=== PATIENT | female | born 1955 | race Caucasian/White ===

== ENCOUNTER 2018-11-10 06:06 | Day surgery (SDC) | payer MEDICARE ==
[~2018-11-10] VITALS: Ht 157.5 cm; Wt 59.5 kg
[~2018-11-10 06:06] MED LIST: ACET-2247 PO; AMLO-512 PO; HYDR25TA PO
[2018-11-10] MEDS ORDERED: LIDOCAINE 4% 50 ML SOLUTION TP ONE (06:07)
[2018-11-10] MEDS ORDERED: BENZOCAINE 20% 50 MCG/SPRAY 57 GM TP ONE (06:07)
[2018-11-10] MEDS ORDERED: LIDOCAINE 2% 30 ML JELLY TP ONE (06:07)
[2018-11-10] MEDS ORDERED: SODIUM CHLORIDE 0.9% 1,000 ML IV ONE ×2 (06:14→06:30)
[2018-11-10] MEDS ORDERED: MIDAZOLAM HCL 2 MG/2 ML VIAL ONE (07:27)
[2018-11-10] MEDS ORDERED: FentaNYL CITRATE-PF 100 MCG/2 ML VIAL ONE (07:28)
[2018-11-10] MEDS ORDERED: MethylPREDNISolone SOD SUCC 125 MG/2 ML VIAL IVP ONE (08:30)
[2018-11-10] MEDS ORDERED: MethylPREDNISolone SOD SUCC 125 MG/2 ML VIAL ONE (08:35)
[2018-11-10] MEDS ORDERED: OXYGEN THERAPY IH SCH (20:00)
== END 2018-11-10 09:55 | disposition home or self-care (01) ==
LOC: SURGERY 06:06
PROVIDERS: ATTEND Internal Medicine Critical Care Medicine
DX: J38.4 Edema of larynx (principal); B37.0 Candidal stomatitis; J84.111 Idiopathic interstitial pneumonia, not otherwise specified; J98.09 Other diseases of bronchus, not elsewhere classified; J98.8 Other specified respiratory disorders; I10 Essential (primary) hypertension; I70.0 Atherosclerosis of aorta; Z79.891 Long term (current) use of opiate analgesic; Z91.013 Allergy to seafood; Z79.899 Other long term (current) drug therapy
CPT/HCPCS: 31623; 31624; 71045; 87015; 87070; 87101; 87205; 87206; 87220; 88108; 88312; 99152; J2250; J2930; J3010; J7030